=== PATIENT | male | born 1955 | race Hispanic/Latino ===

== ENCOUNTER 2024-06-05 06:36 | Inpatient (IN) | payer MEDICARE ==
[~2024-06-05] VITALS: Ht 172.7 cm; Wt 75.1 kg
[2024-06-05] VITALS (8 sets, daily range): BP systolic 125–152; BP diastolic 73–82; PULSE 76–89; RESP 17–20; TEMP 97.6–98.2; O2SAT 93–98
[2024-06-05 07:03] LABS: BASOPHILS % 0.3 % (0.0-1.0); EOSINOPHILS % 0.3 % (0.0-6.0); HEMATOCRIT 47.5 % (38.2-49.6); HEMOGLOBIN 15.9 g/dL (14.0-18.0); LYMPHOCYTES # (AUTO) 0.9 (1.0-3.2); LYMPHOCYTES % 5.8 % (18.0-39.1); MEAN CORPUSCULAR HGB CONC 33.5 g/dL (31-35); MEAN CORPUSCULAR VOLUME 86.5 fL (81-99); MONOCYTES # (AUTO) 0.7 (0.2-0.8); MONOCYTES % 4.7 % (4.4-11.3); NEUTROPHILS # (AUTO) 13.8 (2.1-6.9); NEUTROPHILS % 88.5 % (38.7-80.0); PLATELET COUNT 258 x10e3/uL (140-360); RED BLOOD COUNT 5.49 x10e6/uL (4.3-5.7); RED CELL DISTRIBUTION WIDTH 13.8 % (11.7-14.4); WHITE BLOOD COUNT 15.54 x10e3/uL (4.8-10.8)
[2024-06-05] MEDS: SODIUM CHLORIDE 0.9% 1000ML 1,000 ML IV STA (07:05)
[2024-06-05] MEDS: ONDANSETRON HCL INJ 2MG/ML 2ML 2 MG/ML VIAL IV STA ×2 (07:05→09:39)
[2024-06-05] MEDS: Morphine 2mg Syringe 2 MG/ML SYR IV STA (07:05)
[2024-06-05 07:07] LABS: INR 0.9; PARTIAL THROMBOPLASTIN TIME 24.5 seconds (23.8-35.5); PROTHROMBIN TIME 12.6 seconds (11.9-14.5)
[2024-06-05 07:25] LABS: ALBUMIN 4.7 g/dL (3.5-5.0); ALBUMIN/GLOBULIN RATIO 1.6 (0.8-2.0); ANION GAP 16.2 mmol/L (8-16); BILIRUBIN,TOTAL 0.6 mg/dL (0.2-1.2); CALCIUM 10.3 mg/dL (8.4-10.2); CREATININE, SERUM 1.15 mg/dL (0.72-1.25); POTASSIUM 4.2 mmol/L (3.5-5.1); TOTAL PROTEIN 7.7 g/dL (6.5-8.1)
[2024-06-05 07:30] LABS: TROPONIN I 0.006 ng/mL (0-0.300)
[2024-06-05] MEDS ORDERED: IOPAMIDOL 370 MG/ML 100 ML INFUS..BTL INJ ONE (07:48)
[2024-06-05] MEDS: BENZOCAINE/TETRACAINE/BUTAMBEN AERO SPRAY 56 GM CAN TOP ONE (09:39)
[2024-06-05] MEDS: Morphine 4mg INJECTION 4 MG/ML INJ IV STA (09:39)
[2024-06-05] MEDS ORDERED: HYDRALAZINE HCL 20 MG/ML VIAL IV PRN (11:15)
[2024-06-05] MEDS: PROMETHAZINE 12.5MG/ NACL 0.9% 12.5 MG/50 ML BAG IV ONE (11:40)
[2024-06-05] MEDS: SODIUM CHLORIDE 0.9% 1000ML 1,000 ML IV SCH (11:45)
[2024-06-05] MEDS: ENOXAPARIN SOD INJ 40 MG/0.4 ML SYR SC SCH (17:33)
[2024-06-05] MEDS: Morphine 4mg INJECTION 4 MG/ML INJ IV PRN (19:32)
[2024-06-05] MEDS: ONDANSETRON HCL INJ 2MG/ML 2ML 2 MG/ML VIAL IV PRN (19:32)
[2024-06-05] MEDS ORDERED: LISINOPRIL10 MG PO (19:35)
[2024-06-05] MEDS ORDERED: METOPROLOL TART50 MG PO (19:35)
[2024-06-05] MEDS ORDERED: ASPIRIN81 MG PO (19:35)
[2024-06-05] MEDS ORDERED: LEVOTHYROXINE50 MCG PO (19:35)
[2024-06-05] MEDS ORDERED: PREDNISONE10 MG PO (19:35)
[2024-06-05] MEDS ORDERED: SIMVASTATIN40 MG PO (19:35)
[2024-06-05] MEDS ORDERED: ALLOPURINOL300 MG PO (19:35)
[2024-06-05] MEDS: SODIUM CHLORIDE 0.9% 250ML IRRIG IR SCH (21:21)
[2024-06-05] MEDS ORDERED: SODIUM CHLORIDE 0.9% IRRIG 3,000 ML BAG IR SCH (22:00)
[2024-06-06] VITALS (8 sets, daily range): BP systolic 134–156; BP diastolic 77–90; PULSE 69–79; RESP 18–20; TEMP 98–98.6; O2SAT 94–96
[2024-06-06 06:03] LABS: BASOPHILS % 0.4 % (0.0-1.0); EOSINOPHILS # (AUTO) 0.2 (0.0-0.4); EOSINOPHILS % 2.5 % (0.0-6.0); HEMATOCRIT 36.8 % (38.2-49.6); HEMOGLOBIN 12.2 g/dL (14.0-18.0); LYMPHOCYTES # (AUTO) 1.5 (1.0-3.2); LYMPHOCYTES % 16.2 % (18.0-39.1); MEAN CORPUSCULAR HEMOGLOBIN 29.5 pg (28-32); MEAN CORPUSCULAR HGB CONC 33.2 g/dL (31-35); MEAN CORPUSCULAR VOLUME 89.1 fL (81-99); MONOCYTES % 10.6 % (4.4-11.3); NEUTROPHILS # (AUTO) 6.5 (2.1-6.9); NEUTROPHILS % 70.1 % (38.7-80.0); PLATELET COUNT 202 x10e3/uL (140-360); RED BLOOD COUNT 4.13 x10e6/uL (4.3-5.7); RED CELL DISTRIBUTION WIDTH 14.4 % (11.7-14.4); WHITE BLOOD COUNT 9.22 x10e3/uL (4.8-10.8)
[2024-06-06 06:33] LABS: MAGNESIUM 1.8 MG/DL (1.3-2.1)
[2024-06-06 06:35] LABS: ALBUMIN 3.3 g/dL (3.5-5.0); ALBUMIN/GLOBULIN RATIO 1.5 (0.8-2.0); ANION GAP 10.8 mmol/L (8-16); BILIRUBIN,TOTAL 0.5 mg/dL (0.2-1.2); CALCIUM 8.4 mg/dL (8.4-10.2); CREATININE, SERUM 0.85 mg/dL (0.72-1.25); POTASSIUM 3.8 mmol/L (3.5-5.1); TOTAL PROTEIN 5.5 g/dL (6.5-8.1)
[2024-06-06 07:01] LABS: FREE T4 (FREE THYROXINE) 0.97 ng/dL (0.8-1.8); THYROID STIMULATING HORMONE 1.356 uIU/mL (0.350-4.940)
[2024-06-06 13:24] LABS: FERRITIN 314.63 ng/mL (21.81-274.66)
[2024-06-06] MEDS: PROMETHAZINE 12.5MG/ NACL 0.9% 12.5 MG/50 ML BAG IV PRN (15:08)
[2024-06-06] MEDS: BISACODYL 10 MG SUPP PR SCH (21:15)
[2024-06-07 03:12] VITALS: BP 151/85; PULSE 70; RESP 18; TEMP 98.4; O2SAT 94
[2024-06-07 06:15] LABS: BASOPHILS # (AUTO) 0.1 (0.0-0.1); BASOPHILS % 0.7 % (0.0-1.0); EOSINOPHILS # (AUTO) 0.5 (0.0-0.4); EOSINOPHILS % 5.4 % (0.0-6.0); HEMATOCRIT 36.6 % (38.2-49.6); HEMOGLOBIN 11.9 g/dL (14.0-18.0); LYMPHOCYTES # (AUTO) 1.9 (1.0-3.2); LYMPHOCYTES % 21.4 % (18.0-39.1); MEAN CORPUSCULAR HEMOGLOBIN 29.1 pg (28-32); MEAN CORPUSCULAR HGB CONC 32.5 g/dL (31-35); MEAN CORPUSCULAR VOLUME 89.5 fL (81-99); MONOCYTES # (AUTO) 0.9 (0.2-0.8); NEUTROPHILS # (AUTO) 5.7 (2.1-6.9); NEUTROPHILS % 62.2 % (38.7-80.0); PLATELET COUNT 198 x10e3/uL (140-360); RED BLOOD COUNT 4.09 x10e6/uL (4.3-5.7); RED CELL DISTRIBUTION WIDTH 13.9 % (11.7-14.4); WHITE BLOOD COUNT 9.08 x10e3/uL (4.8-10.8)
[2024-06-07 06:34] LABS: ANION GAP 10.5 mmol/L (8-16); CALCIUM 8.8 mg/dL (8.4-10.2); CREATININE, SERUM 0.89 mg/dL (0.72-1.25); POTASSIUM 3.5 mmol/L (3.5-5.1)
[2024-06-07 07:48] VITALS: BP 154/85; PULSE 71; RESP 18; TEMP 98.1; O2SAT 96
[2024-06-07 08:30] VITALS: BP 159/90; PULSE 68; RESP 18; TEMP 98; O2SAT 99
[2024-06-07 11:38] VITALS: BP 145/87; PULSE 85; RESP 18; TEMP 97.6; O2SAT 97
[2024-06-07 16:40] VITALS: BP 155/84; PULSE 73; RESP 18; TEMP 97.9; O2SAT 96
[2024-06-07] MEDS: POTASSIUM CHLORIDE 10MEQ EA PO ONE (18:54)
[2024-06-07 23:33] VITALS: BP 162/91; PULSE 76; RESP 18; TEMP 98.4; O2SAT 98
[2024-06-08 03:45] VITALS: BP 153/88; PULSE 73; RESP 18; TEMP 98.6; O2SAT 95
[2024-06-08 04:25] VITALS: BP 162/91; PULSE 76; RESP 18; TEMP 98.4; O2SAT 98
[2024-06-08 06:25] LABS: BASOPHILS # (AUTO) 0.1 (0.0-0.1); BASOPHILS % 0.8 % (0.0-1.0); EOSINOPHILS # (AUTO) 0.6 (0.0-0.4); EOSINOPHILS % 6.9 % (0.0-6.0); HEMATOCRIT 35.7 % (38.2-49.6); HEMOGLOBIN 12.1 g/dL (14.0-18.0); LYMPHOCYTES # (AUTO) 2.2 (1.0-3.2); LYMPHOCYTES % 28.1 % (18.0-39.1); MEAN CORPUSCULAR HEMOGLOBIN 29.4 pg (28-32); MEAN CORPUSCULAR HGB CONC 33.9 g/dL (31-35); MEAN CORPUSCULAR VOLUME 86.7 fL (81-99); MONOCYTES % 12.1 % (4.4-11.3); NEUTROPHILS # (AUTO) 4.1 (2.1-6.9); NEUTROPHILS % 51.7 % (38.7-80.0); PLATELET COUNT 198 x10e3/uL (140-360); RED BLOOD COUNT 4.12 x10e6/uL (4.3-5.7); RED CELL DISTRIBUTION WIDTH 13.5 % (11.7-14.4); WHITE BLOOD COUNT 7.95 x10e3/uL (4.8-10.8)
[2024-06-08 06:51] LABS: ANION GAP 7.8 mmol/L (8-16); CALCIUM 9.7 mg/dL (8.4-10.2); CREATININE, SERUM 0.89 mg/dL (0.72-1.25); MAGNESIUM 2.4 MG/DL (1.3-2.1); POTASSIUM 3.8 mmol/L (3.5-5.1)
[2024-06-08 09:23] VITALS: BP 165/95; PULSE 78; RESP 17; TEMP 97.6; O2SAT 98
[2024-06-08 13:07] VITALS: BP 159/93; PULSE 74; RESP 18; TEMP 98.2; O2SAT 99
[2024-06-08] MEDS: ASPIRIN 81 MG CHEW TAB PO SCH (13:44)
[2024-06-08] MEDS: LISINOPRIL 20 MG TAB PO SCH (13:44)
[2024-06-08] MEDS: ALLOPURINOL 300 MG TAB PO SCH (13:45)
[2024-06-08 16:20] VITALS: BP 157/87; PULSE 64; RESP 17; TEMP 98; O2SAT 98
[2024-06-08 17:01] VITALS: BP 157/87; PULSE 64
[2024-06-08] MEDS: METOPROLOL TARTRATE 50 MG TAB PO SCH (17:01)
[2024-06-08] MEDS ORDERED: SIMVASTATIN 40 MG TAB PO SCH (21:00)
[2024-06-09] MEDS ORDERED: LEVOTHYROXINE SODIUM 50 MCG TAB PO SCH (09:00)
== END 2024-06-08 18:50 | disposition home or self-care (01) | DRG 389 ==
LOC: ER 06:41 → ERHOLD 09:48 → MED/SURG2 13:16
PROVIDERS: ADMIT Internal Medicine; ATTEND Internal Medicine
DX: K56.609 Unspecified intestinal obstruction, unspecified as to partial versus complete obstruction (principal); R18.8 Other ascites; D63.8 Anemia in other chronic diseases classified elsewhere; K57.90 Diverticulosis of intestine, part unspecified, without perforation or abscess without bleeding; K80.20 Calculus of gallbladder without cholecystitis without obstruction; I10 Essential (primary) hypertension; E03.9 Hypothyroidism, unspecified; E78.2 Mixed hyperlipidemia; D72.829 Elevated white blood cell count, unspecified; Z11.52 Encounter for screening for COVID-19; Z79.82 Long term (current) use of aspirin; Z79.890 Hormone replacement therapy
CPT/HCPCS: 36415; 71045; 74018; 74177; 76705; 80048; 80053; 82607; 82728; 83036; 83540; 83690; 83735; 84439; 84443; 84466; 84480; 84481; 84484; 85025; 85610; 85730; 87040; 93005; 99252; 99285; J1650; J2270; J2405; J2470; J2543; J2550; J7030; Q9967; U0002